=== PATIENT | male | born 1975 | race Caucasian/White ===

== ENCOUNTER 2019-05-14 08:45 | Emergency (ER) | payer OTHER, SELFPAY ==
[2019-05-14 08:47] VITALS: BP 143/93; PULSE 89; RESP 16; TEMP 36.6; O2SAT 95; BMI 29.0
--- NOTE | 2019-05-14 09:03 | ED.VISSUMM ---
- ER Visit Summary Date of Service: 05/14/19 Chief Complaint: Nausea and vomiting History of Present Illness: The patient is a 43 M no seen past medical or surgical history. He states he is never stay in the hospital overnight. Patient is currently on no medications. States this morning he had nausea and vomiting. He states after he throws up he has had some chest discomfort. But is not exertional. There is no shortness of breath. It does not go to his neck jaw or arm. He denies any dyspnea. He also has some vertigo-like dizziness with head movement. Denies any headache. And no other neurological symptoms. No weakness, numbness or visual change. No slurred speech. No headache. Physical Examination: Well-appearing middle-aged male. No acute distress. Vital signs are stable and afebrile. H EENT exam unremarkable. Neck nontender no JVD. Lungs clear to auscultation bilaterally. Heart regular rhythm no murmur. Abdomen soft nontender. Normal bowel sounds no peritoneal signs. Remedies moves all 4. Neurovascular intact. 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 Normal dorsi plantarflexion. Neurologically is awake alert. Normal speech. No facial droop. Fingertip to nose within normal limits bilaterally. Test Results: EKG obtained by nursing staff shows a normal sinus rhythm rate of 86. No acute abnormality. CBC normal white count of 10. Hemoglobin of 15. Chemistries unremarkable gap of 7 normal creatinine. Glucose of 163. Troponin normal. Emergency Department Course and Treatment: He will be treated with IV fluids and Zofran. Screening labs will be obtained. P.o. Valium for vertigo-like dizziness. Repeat exam patient is doing well at 10:44 AM. Valium is improved his dizziness. Treatment Plan: Zofran as needed for nausea. Valium for dizziness. Follow-up if not improving return if worse. Disposition: Discharge Impression: Acute nausea and vomiting secondary to vertigo This note was generated with [employer] dictation software. It may contain incorrect words, spelling, and punctuation that were not noted in review of the chart prior to signing ED Disposition - Plan for ED Patient: Disposition: Home or Assisted Living Instructions: VERTIGO, Unspecified, VOMITING (6y-Adult) Prescriptions: Diazepam [Valium] 5 mg PO BID PRN PRN #10 tab PRN Reason: for dizziness Prescription Printed Ondansetron [Zofran Odt] 4 mg PO Q8H PRN PRN #10 tab PRN Reason: Nausea Prescription Printed Referrals: Norbert Worrell MD [STAFF PHYSICIAN] - 3-5 Days if not improving Additional Instructions: Plenty of fluids and rest. Take it easy over the next several days. Increase activity as tolerated. Valium as needed for dizziness. Diet will make you sleepy. Do not drive or use machinery or equipment while using Valium. Zofran as needed for nausea. Follow-up with your doctor if not improving or return if worse.
[2019-05-14] MEDS: 0.9% Normal Saline 1,000 ML 1000 ML IV (09:09)
[2019-05-14] MEDS: Ondansetron 4 MG/2 ML Vial IV (09:09)
[2019-05-14 09:10] LABS: Absolute Lymphocyte Count 1.13 X10^3/uL (0.83-4.51); Absolute Neutrophil Count 8.5 X10^3/uL (2.0-7.7); Basophil# 0.03 X10^3/uL; Basophil% 0.3 % (0-1); Eosinophil# 0.01 X10^3/uL; Eosinophils% 0.1 % (0-5); Hematocrit 45.5 % (40-54); Hemoglobin 15.5 g/dL (13.0-16.5); Lymphocyte # 1.13 X10^3/ul (4.0); Lymphocyte % 11.2 % (19-41); Mean Corp Hgb Conc 34.1 g/dL (32-36); Mean Corpuscular Hgb 28.5 pg (27.0-32.0); Mean Corpuscular Volume 83.6 fL (80-94); Mean Platelet Vol. 9.3 fl (6.2-12.0); Monocyte# 0.41 X10^3/uL; NRBC Flagged by Analyzer 0 % (0-5); Neutrophil % 83.9 % (47-70); Platelet Count 192 K/mm3 (150-450); RBC Distribution Width CV 12.7 % (11.6-14.6); RBC Distribution Width SD 38.7 fl (35.1-43.9); Red Blood Count 5.44 M/mm3 (4.6-6.2); White Blood Count 10.1 K/mm3 (4.4-11.0)
--- NOTE | 2019-05-14 09:19 | EKG12_ITS ---
Test Reason : NAUSEA Blood Pressure : / mmHG Vent. Rate : 086 BPM Atrial Rate : 086 BPM P-R Int : 178 ms QRS Dur : 096 ms QT Int : 388 ms P-R-T Axes : 060 058 017 degrees QTc Int : 464 ms Normal sinus rhythm Normal ECG Confirmed by TANVIR COUCH, JORGE ALBERTO ([id number]), photography editor JOSHUA SAHA ([id number]) on 05/16/2019 1:54:26 PM Referred By: MIKEL Confirmed By:JACOB RAMEY MD
[2019-05-14 09:27] LABS: Anion Gap 7 (5-15); BUN 19 mg/dL (7-18); BUN/Creat Ratio 19.6 RATIO (10-20); Calcium,Total 8.8 mg/dL (8.5-10.1); Chloride 106 mmol/L (98-107); Creatinine, Serum 0.97 mg/dL (0.70-1.30); EST Glomerular Filtration Rate 89 mL/min (>60); Est Glom Filt Rate - Afr Amer 107 mL/min (>60); Estimated Creatinine Clearance 86.78 ml/min; Glucose 163 mg/dL (74-106); Potassium 3.8 mmol/L (3.5-5.1); Sodium Level 139 mmol/L (136-145)
[2019-05-14] MEDS: diazePAM 5 MG Tablet PO (09:40)
[2019-05-14 09:46] VITALS: BP 114/77; PULSE 72; RESP 12; O2SAT 97
--- NOTE | 2019-05-14 10:00 | ED.DEP ---
ED Disposition - Plan for ED Patient: Disposition: Home or Assisted Living Instructions: VOMITING (6y-Adult), VERTIGO, Unspecified Prescriptions: Diazepam [Valium] 5 mg PO BID PRN PRN #10 tab PRN Reason: for dizziness Prescription Printed Ondansetron [Zofran Odt] 4 mg PO Q8H PRN PRN #10 tab PRN Reason: Nausea Prescription Printed Referrals: Norbert Worrell MD [STAFF PHYSICIAN] - 3-5 Days if not improving Additional Instructions: Plenty of fluids and rest. Take it easy over the next several days. Increase activity as tolerated. Valium as needed for dizziness. Diet will make you sleepy. Do not drive or use machinery or equipment while using Valium. Zofran as needed for nausea. Follow-up with your doctor if not improving or return if worse.
[2019-05-14 10:55] VITALS: BP 128/72; PULSE 61; RESP 15; O2SAT 99
[2019-05-14] MEDS: Ondansetron ODT 4 MG Tablet PO (11:45)
== END 2019-05-14 11:56 | disposition home or self-care (01) ==
PROVIDERS: Emergency Provider Emergency Medicine
DX: R11.2 Nausea with vomiting, unspecified (principal); R42 Dizziness and giddiness; B34.9 Viral infection, unspecified; R07.89 Other chest pain
CPT/HCPCS: 80048; 84484; 85025; 93005; 96361; 96374; 99285; A4216; J2405

== ENCOUNTER 2023-08-19 15:15 | Emergency (ER) | payer OTHER, SELFPAY ==
[2023-08-19 15:16] VITALS: BP 138/94; PULSE 92; RESP 18; TEMP 36.9; O2SAT 96; BMI 32.3
[2023-08-19 15:22] VITALS: PULSE 93; RESP 16; O2SAT 96
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
[2023-08-19] MEDS: 0.9% Normal Saline (1000mL) 1,000 ML 150 ML IV (15:46)
[2023-08-19 15:52] LABS: Absolute Lymphocyte Count 1.86 X10^3/uL (0.83-4.51); Absolute Neutrophil Count 4.5 X10^3/uL (2.0-7.7); Basophil# 0.02 X10^3/uL; Basophil% 0.3 % (0-1); Eosinophil# 0.08 X10^3/uL; Eosinophils% 1.1 % (0-5); Hematocrit 46.8 % (40-54); Hemoglobin 15.9 g/dL (13.0-16.5); Lymphocyte # 1.86 X10^3/ul (0.83-4.51); Lymphocyte % 26.5 % (19-41); Mean Corpuscular Hgb 28.8 pg (27.0-32.0); Mean Corpuscular Volume 84.6 fL (80-94); Mean Platelet Vol. 9.7 fl (6.2-12.0); Monocyte# 0.52 X10^3/uL; Monocyte% 7.4 % (0-10); NRBC Flagged by Analyzer 0 % (0-5); Neutrophil # 4.52 X10^3/uL (2.7-7.7); Neutrophil % 64.4 % (47-70); Platelet Count 217 K/mm3 (150-450); RBC Distribution Width CV 13.8 % (11.6-14.6); RBC Distribution Width SD 42.4 fl (35.1-43.9); Red Blood Count 5.53 M/mm3 (4.6-6.2)
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
[2023-08-19 16:16] VITALS: BP 144/75; PULSE 92; RESP 16; O2SAT 97
[2023-08-19 16:25] LABS: ALB/GLOB Ratio 1.2 RATIO (0.9-2.4); AST(SGOT) 42 U/L (15-37); Alanine Aminotransfer ALT/SGPT 61 U/L (16-61); Albumin, Serum 3.9 g/dL (3.2-5.0); Alkaline Phosphatase 55 U/L (45-117); Anion Gap 5 (5-15); BUN 16 mg/dL (7-18); BUN/Creat Ratio 13.3 RATIO (10-20); Calcium,Total 8.9 mg/dL (8.5-10.1); Chloride 105 mmol/L (98-107); EST Glomerular Filtration Rate 68 mL/min (>60); Est Glom Filt Rate - Afr Amer 82 mL/min (>60); Globulin 3.3 g/dL (2.2-4.2); Glucose 120 mg/dL (74-106); Potassium 3.8 mmol/L (3.5-5.1); Protein, Total 7.2 g/dL (6.4-8.2); Sodium Level 139 mmol/L (136-145); Troponin-I HS 4 pg/mL (3.0-78.0)
[2023-08-19] MEDS: Ondansetron 4 MG/2 ML Vial IV (16:32)
[2023-08-19] MEDS: Morphine 4 MG/ML Syringe IV ×3 (16:32→19:03)
[2023-08-19 17:09] LABS: Alcohol, Blood (Medical)-Serum < 3.0 mg/dL
[2023-08-19 17:15] VITALS: BP 135/75; PULSE 92; RESP 14; O2SAT 100
--- NOTE | 2023-08-19 17:46 | NURSING ---
CALLED [facility], ETA IS 90 MIN
[2023-08-19 19:45] VITALS: BP 121/67; PULSE 100; RESP 16; TEMP 35.5; O2SAT 96
== END 2023-08-19 19:47 | disposition other institution (70) ==
PROVIDERS: Emergency Provider Emergency Medicine; Visit Provider Emergency Medicine
DX: S12.600A Unspecified displaced fracture of seventh cervical vertebra, initial encounter for closed fracture (principal); M48.54XA Collapsed vertebra, not elsewhere classified, thoracic region, initial encounter for fracture; S22.019A Unspecified fracture of first thoracic vertebra, initial encounter for closed fracture; E11.9 Type 2 diabetes mellitus without complications; V80.52XA Occupant of animal-drawn vehicle injured in collision with other specified motor vehicle, initial encounter; S06.0XAA Concussion with loss of consciousness status unknown, initial encounter
CPT/HCPCS: 70450; 71260; 72125; 74177; 80053; 82077; 84484; 85025; 96361; 96374; 96375; 96376; 99285; J7030; Q9967; A4216; J2405